=== PATIENT | female | born 2000 | race Caucasian/White ===

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

== ENCOUNTER 2023-04-15 06:29 | Inpatient (IN) ==
[2023-04-15] MEDS ORDERED: ZOFRAN INJ 4 MG VIAL ONE (06:38)
[2023-04-15] MEDS ORDERED: DILAUDID INJ ONE ×2 (06:38→09:20)
[2023-04-15] MEDS ORDERED: DIPRIVAN VIAL 20 ML ONE (06:38)
[2023-04-15] MEDS ORDERED: REGLAN INJ 10 MG VIAL ONE (06:38)
[2023-04-15] MEDS ORDERED: PEPCID 20 MG VIAL ONE (06:38)
[2023-04-15] MEDS ORDERED: EPHEDRINE SULFATE INJ ONE (06:38)
[2023-04-15] MEDS ORDERED: MARCAINE SPINAL ONE (06:39)
[2023-04-15] MEDS ORDERED: ANCEF VIAL 1 GRAM IVP ONE (06:41)
[2023-04-15] MEDS ORDERED: XYLOCAINE 2 % (PLAIN) ONE (06:41)
[2023-04-15] MEDS ORDERED: LR 1,000 ML IV 1,000 ML IV ONE (06:42)
[2023-04-15] MEDS ORDERED: ANCEF VIAL 1 GRAM ONE (07:00)
[2023-04-15] MEDS ORDERED: NS 100 ML IV 100 ML ONE (07:00)
[2023-04-15] MEDS ORDERED: BARHEMSYS INJ ONE (07:04)
[2023-04-15] MEDS ORDERED: NS 1,000 ML IV 1,000 ML ONE (07:11)
[2023-04-15] MEDS ORDERED: D5 1/2 NS 1,000 mL + PITOCIN 20 UNITS/L IV 20 UNITS/1,000 ML BAG IV ONE (07:11)
[2023-04-15] MEDS ORDERED: SUPRANE ONE (07:26)
[2023-04-15] MEDS ORDERED: STERILE WATER IRRIGATION IR ONE (07:33)
[2023-04-15] MEDS ORDERED: BRIDION ONE (08:03)
[2023-04-15] MEDS ORDERED: ZEMURON 100 MG VIAL ONE (08:03)
[2023-04-15] MEDS ORDERED: VERSED ONE (08:16)
[2023-04-15] MEDS ORDERED: FENTANYL VIAL INJ 250 mcg ONE (08:17)
[2023-04-15] MEDS ORDERED: PITOCIN ONE (08:17)
[2023-04-15] MEDS ORDERED: OFIRMEV IV 1000 MG VIAL 1,000 MG/100 ML VIAL IV ONE (09:02)
[2023-04-15] MEDS ORDERED: DILAUDID INJ IVP PRN (09:38)
[2023-04-15] MEDS ORDERED: BARHEMSYS INJ IVP PRN (09:38)
[2023-04-15] MEDS ORDERED: ZOFRAN INJ 4 MG VIAL IVP PRN ×2 (09:38→10:52)
[2023-04-15] MEDS ORDERED: REGLAN INJ 10 MG VIAL IVP PRN (09:38)
[2023-04-15] MEDS ORDERED: BENADRYL INJ 50 MG VIAL IVP PRN (09:38)
[2023-04-15] MEDS ORDERED: D5 1/2 NS 1,000 ML 1,000 ML with PITOCIN 20 UNITS IV SCH ×2 (10:52)
[2023-04-15] MEDS ORDERED: BENADRYL CAP/TAB 25 MG PO PRN (10:52)
[2023-04-15] MEDS ORDERED: ADACEL or BOOSTRIX TDaP VACCINE IM ONE (10:52)
[2023-04-15] MEDS ORDERED: HYPERRHO S/D (or RHOGAM) IM PRN (10:52)
[2023-04-15] MEDS ORDERED: MORPHINE SULFATE PCA 30 MG IVP PRN (10:52)
[2023-04-15] MEDS: TORADOL 30 MG VIAL IVP PRN (20:29)
[2023-04-16 05:37] LABS: HEMATOCRIT 26.2 % (36.0-47.0)
[2023-04-16 05:40] LABS: HEMOGLOBIN 8.7 g/dL (12.0-16.0)
[2023-04-16] MEDS: TORADOL 30 MG VIAL IVP PRN (06:02)
[2023-04-16] MEDS ORDERED: MOTRIN TAB 800 MG PO PRN (07:11)
[2023-04-16] MEDS: PRENATAL PLUS PO SCH (09:06)
[2023-04-16] MEDS: COLACE CAP 100 MG PO SCH ×2 (09:06→21:52)
[2023-04-16] MEDS: PERCOCET TAB 5/325 MG PO PRN ×2 (14:30→18:33)
[2023-04-16] MEDS: BACTROBAN TOPICAL OINT TOP SCH ×2 (14:34→21:54)
[2023-04-16] MEDS: FERROUS GLUCONATE PO SCH (18:25)
[2023-04-16] MEDS: MYLICON TAB 80 MG CHEW PO PRN (21:51)
[2023-04-17] MEDS: PERCOCET TAB 5/325 MG PO PRN ×2 (00:05→06:16)
[2023-04-17] MEDS: FERROUS GLUCONATE PO SCH (06:17)
[2023-04-17] MEDS: BACTROBAN TOPICAL OINT TOP SCH (06:18)
[2023-04-17] MEDS: MYLICON TAB 80 MG CHEW PO PRN (06:18)
[2023-04-17] MEDS: COLACE CAP 100 MG PO SCH (08:17)
[2023-04-17] MEDS: PRENATAL PLUS PO SCH (08:17)
[2023-04-17 09:15] VITALS: BP 123/68; PULSE 98; TEMP 97.9; O2SAT 98
== END 2023-04-17 11:30 | disposition home or self-care (01) | DRG 787 ==
LOC: LD 06:29 → MED/SURG 10:01
PROVIDERS: ADMIT Specialist; ATTEND Specialist
DX: Z3A.39 39 weeks gestation of pregnancy; N85.8 Other specified noninflammatory disorders of uterus; Z37.0 Single live birth; B95.1 Streptococcus, group B, as the cause of diseases classified elsewhere; O36.0930 Maternal care for other rhesus isoimmunization, third trimester, not applicable or unspecified; O34.211 Maternal care for low transverse scar from previous cesarean delivery; R79.89 Other specified abnormal findings of blood chemistry; Z01.812 Encounter for preprocedural laboratory examination; O98.82 Other maternal infectious and parasitic diseases complicating childbirth; O24.113 Pre-existing type 2 diabetes mellitus, in pregnancy, third trimester